=== PATIENT | male | born 1985 | race Two or more races ===

== ENCOUNTER 2025-04-23 16:50 | Emergency (ER) | payer OTHER ==
[~2025-04-23] VITALS: Ht 175.3 cm; Wt 95.3 kg
[2025-04-23] MEDS: LIDOCAINE 1%-EPI 1:200,000 SDV 10 ML VIAL IJ ONE (17:49)
[2025-04-23] MEDS ORDERED: LIDOCAINE 1%-EPI 1:100,000 20 ML VIAL ONE (17:49)
[2025-04-23] MEDS ORDERED: BACI500P4 TP (18:15)
[2025-04-23 18:17] VITALS: BP 122/70; TEMP 98.9; O2SAT 99
== END 2025-04-23 18:18 | disposition home or self-care (01) ==
LOC: ER 17:41
DX: S61.411A Laceration without foreign body of right hand, initial encounter (principal); W26.0XXA Contact with knife, initial encounter; Y93.89 Activity, other specified; Y92.89 Other specified places as the place of occurrence of the external cause; Y99.8 Other external cause status
CPT/HCPCS: 12001; 99282; J3490

== ENCOUNTER 2025-05-01 13:09 | Emergency (ER) | payer OTHER ==
[~2025-05-01] VITALS: Ht 175.3 cm; Wt 95.3 kg
[~2025-05-01 13:09] MED LIST: BACI500P4 TP
[2025-05-01 13:22] VITALS: BP 118/77; TEMP 98
[2025-05-01 13:37] VITALS: O2SAT 98
== END 2025-05-01 13:38 | disposition home or self-care (01) ==
LOC: ER 13:09
DX: S61.411D Laceration without foreign body of right hand, subsequent encounter (principal); Z79.899 Other long term (current) drug therapy; X58.XXXD Exposure to other specified factors, subsequent encounter